=== PATIENT | female | born 1950 | race African-American/Black ===

== ENCOUNTER 2017-02-03 06:33 | Day surgery (SDC) | payer MEDICARE, OTHER ==
--- NOTE | ~2017-02-03 | EGD ---
EGD REPORT [facility] [address] [address] NAME: ALESSANDRA VANEGAS : [birth year] STATUS : REG [facility] [place] PAT#: [id number] AGE: 66 ADM/REG DATE : 02/03/17 MR#: [id number] REPORT SERV DATE: 02/03/17 DICTATED BY: ISAIAS PAIGE DATE: 02/03/17 REPORT STATUS : Draft [facility]ANS[facility]IBED [facility]: [facility] DATE: 02/03/17 [facility] Patient Name: Alessandra Vanegas Date of : 1950 Attending MD: ISAIAS PAIGE MD Procedure Date No Time: 02/03/2017 Procedure: Colonoscopy Indications: Abdominal pain in the left lower quadrant Referring MD: Brea Borja Medicines: Propofol per Anesthesia Complications: No immediate complications. Procedure: Pre-Anesthesia Assessment: - ASA Grade Assessment: III - A patient with severe systemic disease. After I obtained informed consent, the scope was passed under direct vision. Throughout the procedure, the patient's blood pressure, pulse, and oxygen saturations were monitored continuously. The PCF [id number] was introduced through the anus and advanced to the terminal ileum. The colonoscopy was performed without difficulty. The patient tolerated the procedure well. The quality of the bowel preparation was good. Findings: The perianal and digital rectal examinations were normal. Many medium-mouthed diverticula were found in the recto-sigmoid colon, in the sigmoid colon, in the descending colon, at the splenic flexure, in the transverse colon and at the hepatic flexure. Mild diverticulitis was seen in the sigmoid colon noted by swelling and edema as well as erythyema. Mild sigmoid stricture but the colonoscope was able to advance with minimal resistance. The rest of the colon was normal. Impression: - Diverticulosis in the recto-sigmoid colon, in the sigmoid colon, in the descending colon, at the splenic flexure, in the transverse colon and at the hepatic flexure. - Diverticulitis. Recommendation: - Patient has a contact number available for emergencies. The signs and symptoms of potential delayed complications were discussed with the patient. Return to normal activities tomorrow. Written discharge instructions were provided to the patient. EGD REPORT [address] [address] NAME: ALESSANDRA VANEGAS : [birth year] STATUS : REG [facility] [place] PAT#: [id number] AGE: 66 ADM/REG DATE : 02/03/17 MR#: [id number] REPORT SERV DATE: 02/03/17 DICTATED BY: ISAIAS PAIGE DATE: 02/03/17 REPORT STATUS : Draft TRANSCRIBED BY: [email or web address] DATE: 02/03/17 - Regular diet. - Patient has a contact number available for emergencies. The signs and symptoms of potential delayed complications were discussed with the patient. Return to normal activities tomorrow. Written discharge instructions were provided to the patient. - Continue present medications. - Repeat colonoscopy in 2 years for surveillance. - Return to nurse practitioner in 3 weeks. Ciprofloxacin 500 mg po bid for 7 days. Procedure Code(s): --- Professional --- 87970, Colonoscopy, flexible, proximal to splenic flexure; diagnostic, with or without collection of specimen(s) by brushing or washing, with or without colon decompression (separate procedure) Diagnosis Code(s): --- Professional --- K57.30, Diverticulosis of large intestine without perforation or abscess without bleeding K57.92, Diverticulitis of intestine, part unspecified, without perforation or abscess without bleeding R10.32, Left lower quadrant pain CPT copyright 2013 [employer]. All rights reserved. The codes documented in this report are preliminary and upon repertoire manager review may be revised to meet current compliance requirements. Isaias Paige MD ISAIAS PAIGE MD 02/03/2017 8:35 AM This report has been signed electronically. Number of Addenda: 0 Note Initiated On: 02/03/2017 7:06 AM Scope Withdrawal Time 0 hours 7 minutes 32 seconds [address] [place] [address]
--- NOTE | ~2017-02-03 | EGD ---
EGD REPORT [facility] [address] [address] NAME: ALESSANDRA VANEGAS : [birth year] STATUS : REG [facility] PAT#: [id number] AGE: 66 ADM/REG DATE : 02/03/17 MR#: [id number] REPORT SERV DATE: 02/03/17 DICTATED BY: ISAIAS PAIGE DATE: 02/03/17 REPORT STATUS : Draft TRANSCRIBED BY: [employer] DATE: 02/03/17 Endoscopy Center Patient Name: Alessandra Vanegas Date of : 1950 Attending MD: ISAIAS PAIGE MD Procedure Date No Time: 02/03/2017 Procedure: Upper GI endoscopy Indications: Epigastric abdominal pain, Abdominal pain in the right upper quadrant, Dyspepsia Referring MD: Brea Borja Medicines: Propofol per Anesthesia Complications: No immediate complications. Procedure: Pre-Anesthesia Assessment: - ASA Grade Assessment: III - A patient with severe systemic disease. - Prior to the procedure, a History and Physical was performed, and patient medications and allergies were reviewed. The patient's tolerance of previous anesthesia was also reviewed. The risks and benefits of the procedure and the sedation options and risks were discussed with the patient. All questions were answered, and informed consent was obtained. Prior Anticoagulants: The patient has taken no previous anticoagulant or antiplatelet agents. ASA Grade Assessment: II - A patient with mild systemic disease. After reviewing the risks and benefits, the patient was deemed in satisfactory condition to undergo the procedure. After obtaining informed consent, the endoscope was passed under direct vision. Throughout the procedure, the patient's blood pressure, pulse, and oxygen saturations were monitored continuously. The GIF H190 [id number] was introduced through the mouth, and advanced to the second part of duodenum. The upper GI endoscopy was accomplished without difficulty. The patient tolerated the procedure well. The upper GI endoscopy was accomplished without difficulty. The patient tolerated the procedure well. Findings: The examined esophagus was normal. Diffuse mild inflammation characterized by erosions and erythema was found in the stomach. Biopsies were taken with a cold forceps for histology. The examined duodenum was normal. EGD REPORT [address] [address] NAME: ALESSANDRA VANEGAS : [birth year] STATUS : REG [facility] PAT#: [id number] AGE: 66 ADM/REG DATE : 02/03/17 MR#: [id number] REPORT SERV DATE: 02/03/17 DICTATED BY: ISAIAS PAIGE DATE: 02/03/17 REPORT STATUS : Draft TRANSCRIBED BY: [employer] DATE: 02/03/17 Impression: - Normal esophagus. - Chronic gastritis. Biopsied. - Normal examined duodenum. Recommendation: - Patient has a contact number available for emergencies. The signs and symptoms of potential delayed complications were discussed with the patient. Return to normal activities tomorrow. Written discharge instructions were provided to the patient. - Regular diet. - Patient has a contact number available for emergencies. The signs and symptoms of potential delayed complications were discussed with the patient. Return to normal activities tomorrow. Written discharge instructions were provided to the patient. - Continue present medications. - Patient has a contact number available for emergencies. The signs and symptoms of potential delayed complications were discussed with the patient. Return to normal activities tomorrow. Written discharge instructions were provided to the patient. Procedure Code(s): --- Professional --- 64718, Esophagogastroduodenoscopy, flexible, transoral; with biopsy, single or multiple Diagnosis Code(s): --- Professional --- K29.50, Unspecified chronic gastritis without bleeding R10.13, Epigastric pain R10.11, Right upper quadrant pain K30, Functional dyspepsia CPT copyright 2013 [employer]. All rights reserved. The codes documented in this report are preliminary and upon remote mortgage underwriter review may be revised to meet current compliance requirements. Isaias Paige MD ISAIAS PAIGE MD 02/03/2017 8:15 AM This report has been signed electronically. Number of Addenda: 0 Note Initiated On: 02/03/2017 7:06 AM Scope Withdrawal Time 0 hours 0 minutes 0 seconds EGD REPORT [facility] [address] [address] NAME: ALESSANDRA VANEGAS : [birth year] STATUS : REG [facility] PAT#: [id number] AGE: 66 ADM/REG DATE : 02/03/17 MR#: [id number] REPORT SERV DATE: 02/03/17 DICTATED BY: ISAIAS PAIGE. DATE: 02/03/17 REPORT STATUS : Draft TRANSCRIBED BY: [employer] DATE: 02/03/17 [address] [id number]
[~2017-02-03 06:33] MED LIST: ASAB PO; AZOR1 TA2 PO; AZOR1 TA3 PO; BYSTOLIC10 MG PO; GLUCOPHAGE1000 MG PO; KLOR-CON M2020 MEQ PO; L40 PO; LANTUS SC; MUCINEX600 MG PO; NEXIUM40 PO; NOVOLOG SC; PROAIR HFA INH; PROBIOTIC PO; QVAR 80 MCG80 MCG INH; TURMERIC PO; VIB100 PO
== END 2017-02-03 23:59 | disposition home health service (06) ==
LOC: DMU 06:33
PROVIDERS: Internal Medicine Gastroenterology
PROC: 0DJD8ZZ Inspection of Lower Intestinal Tract, Via Natural or Artificial Opening Endoscopic (ICD-10-PCS; principal; 2017-02-03 08:00)
PROC: 0DB68ZX Excision of Stomach, Via Natural or Artificial Opening Endoscopic, Diagnostic (ICD-10-PCS; 2017-02-03 08:00)
DX: K57.92 Diverticulitis of intestine, part unspecified, without perforation or abscess without bleeding (principal); I10 Essential (primary) hypertension; G47.33 Obstructive sleep apnea (adult) (pediatric); G43.909 Migraine, unspecified, not intractable, without status migrainosus; E11.9 Type 2 diabetes mellitus without complications; J44.9 Chronic obstructive pulmonary disease, unspecified; K21.9 Gastro-esophageal reflux disease without esophagitis; M19.90 Unspecified osteoarthritis, unspecified site; F32.9 Major depressive disorder, single episode, unspecified; Z88.8 Allergy status to other drugs, medicaments and biological substances; Z79.899 Other long term (current) drug therapy; Z90.49 Acquired absence of other specified parts of digestive tract; Z90.710 Acquired absence of both cervix and uterus; Z98.51 Tubal ligation status; Z98.890 Other specified postprocedural states; Z98.41 Cataract extraction status, right eye; Z98.42 Cataract extraction status, left eye
CPT/HCPCS: 82962; 88305; J2405